=== PATIENT | female | born 1930 | race African-American/Black ===

== ENCOUNTER 2016-10-06 16:46 | Inpatient (IN) | payer MEDICAID, MEDICARE ==
[~2016-10-06] VITALS: Ht 167.6 cm; Wt 81.6 kg
--- NOTE | 2016-10-06 17:08 | NUR ---
Pt to e due to right first toe blister since last night. Pt is aa4, appears in no apparent distress,. Respiration even and unlabored,. Pt is afebrile. vss.
--- NOTE | 2016-10-06 17:10 | NUR ---
ASSUME PT CARE. RESTING IN BED. HERE FOR R BIG TOE BLISTER WHEN SHE CUT AN EXCESS SKIN OFF. 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 PT IS ALSO C/O MINIMAL CHEST PAIN X TODAY. 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 GOWNED AND PLACED ON MONITOR.
--- NOTE | 2016-10-06 17:11 | NUR ---
md maguire at bs
[2016-10-06] MEDS ORDERED: ASPIRIN 81 MG TAB.CHEW ONE (17:16)
--- NOTE | 2016-10-06 17:22 | NUR ---
IV LINE STARTED BLOOD DRAWN AND SENT TO LAB.
[2016-10-06 17:27] LABS: BASOPHILS % (AUTO) 0.3 % (0.0-2.0); EOSINOPHILS # (AUTO) 0.1 /CMM (0.0-0.7); EOSINOPHILS % (AUTO) 2.5 % (0.0-6.0); HEMATOCRIT 38 % (33-45); HEMOGLOBIN 12.5 g/dL (11.5-14.8); LYMPHOCYTES # (AUTO) 0.9 /CMM (0.8-4.8); LYMPHOCYTES % (AUTO) 16.2 % (20.0-44.0); MEAN CORPUSCULAR HEMOGLOBIN 30 PG (26.0-33.0); MEAN CORPUSCULAR HGB CONC 33 g/dl (31.0-36.0); MEAN CORPUSCULAR VOLUME 90 fL (82-100); MONOCYTES # (AUTO) 0.5 /CMM (0.1-1.30); NEUTROPHILS # (AUTO) 3.9 /CMM (1.8-8.9); PLATELET COUNT (AUTO) 225 /CMM (150-450); RDW COEFFICIENT OF VARIATION 11.7 (11.5-15.0); RED BLOOD CELL COUNT(AUTO) 4.16 MIL/uL (4.0-5.2); WHITE BLOOD COUNT (AUTO) 5.4 K/uL (4.3-11.0)
[2016-10-06] MEDS ORDERED: ASPIRIN 81 MG TAB.CHEW PO ONE (17:30)
[2016-10-06 17:42] LABS: INR 0.95 (0.87-1.13); PROTHROMBIN TIME 9.9 SECS (9.5-12.7)
[2016-10-06 17:44] LABS: ALANINE AMINOTRANSFERASE 20 U/L (12-78); ALBUMIN 2.8 g/dL (3.4-5.0); ALKALINE PHOSPHATASE 113 U/L (46-116); ASPARTATE AMINOTRANSFERASE 26 U/L (15-37); BILIRUBIN,DIRECT 0.2 mg/dL (0.0-0.2); BILIRUBIN,TOTAL 0.7 mg/dL (0.2-1.0); CALCIUM, SERUM 8.6 mg/dL (8.5-10.1); CARBON DIOXIDE 24 mmol/L (21-32); CHLORIDE 101 mmol/L (98-107); CREATININE 2.2 mg/dL (0.6-1.3); POTASSIUM 4.4 mmol/L (3.5-5.1); SODIUM SERUM 132 mmol/L (136-145); TOTAL PROTEIN, SERUM 7.5 g/dL (6.4-8.2); UREA NITROGEN, BLOOD 26 mg/dL (7-18)
[2016-10-06 17:46] LABS: TROPONIN I < 0.017 ng/mL (0.00-0.056)
[2016-10-06 17:47] LABS: GLUCOSE 450 mg/dL (74-106)
[2016-10-06] MEDS ORDERED: IV SET PRIMARY 1 EA INFUS.SET MC ONE (18:13)
[2016-10-06] MEDS ORDERED: IV NS 0.9% 1,000 ML ONE ×2 (18:13→22:32)
[2016-10-06] MEDS ORDERED: INSULIN REGULAR, HUMAN 100 UNIT/ML 10 ML VIAL ONE (18:13)
--- NOTE | 2016-10-06 18:24 | NUR ---
PAGED DR JIN FOR CALL BACK
[2016-10-06] MEDS ORDERED: INSULIN REGULAR, HUMAN 100 UNIT/ML 10 ML VIAL IV ONE (18:30)
[2016-10-06] MEDS ORDERED: IV NS 0.9% 1,000 ML BAG IV ONE (18:30)
--- NOTE | 2016-10-06 19:11 | NUR ---
REPORT REC'D FROM SHWETA GILL FOR JOHN.
--- NOTE | 2016-10-06 19:23 | NUR ---
REPORT GIVEN TO THAD FOR JOHN.
--- NOTE | 2016-10-06 20:00 | NUR ---
PT HAS TO GO TO THE BATHROOM. PT IS BEING ASSISTED BY MAN BRISENO. PT HAS GRIPPER SOCKS ON AND IS USING HER WALKER.
--- NOTE | 2016-10-06 20:11 | NUR ---
TELE 315-0
--- NOTE | 2016-10-06 20:19 | NUR ---
DR. DIAZ IS SPEAKING TO DR. NOE,
[2016-10-06] MEDS ORDERED: IV NS 0.9% 1,000 ML IV PRN (20:30)
[2016-10-06] MEDS ORDERED: *INSULIN REGULAR(HUMULIN R)HUM 100 UNIT/ML VIAL SQ PRN (20:30)
[2016-10-06] MEDS ORDERED: ACETAMINOPHEN 325 MG TABLET PO PRN (20:30)
[2016-10-06] MEDS ORDERED: DEXTROSE 50%-WATER 50 ML DISP.SYRIN IV PRN (20:30)
[2016-10-06] MEDS ORDERED: ONDANSETRON HCL/PF 4 MG/2 ML VIAL IV PRN (20:30)
--- NOTE | 2016-10-06 20:40 | NUR ---
CONTAINER FINISHING INSPECTOR NOTE RECEIVED PATIENT FROM ER VIA ZACK, PATIENT IS ALERT AND ORIENTEDX3, ABLE TO WALK WITH A WALKER, NO PAIN REPORTED, SOB AT TIMES. IV ON RIGHT AC IS PATENT AND INTACT. RIGHT GREAT TOE DM ULCER PRESENT, PICTURE TAKEN AND PUT THEM IN A CHART. WILL CONNECT TELE MONITOR. SRX2, BED IN LOW POSITION, CALL LIGHT WITHIN REACH, WILL CONTINUE TO MONITOR PATIENT.
[2016-10-06] MEDS ORDERED: hydrALAZINE HCL 25 MG TABLET PO PRN (21:00)
[2016-10-06] MEDS: HEPARIN SODIUM, PORCINE 5000 UNITS/1 ML VIAL SQ SCH (21:00)
[2016-10-06] MEDS: AMLODIPINE BESYLATE 5 MG TABLET PO SCH (21:00)
[2016-10-06] MEDS ORDERED: MORPHINE SULFATE INJ 2 MG/ML DISP.SYRIN IV PRN (21:00)
--- NOTE | 2016-10-06 21:00 | NUR ---
DELINQUENCY COUNSELOR NOTE PATIENT'S BP UPON ADMISSION WAS 210/94 PULSE 82, ASYMPTOMATIC. REPORTED TO DR. INMAN, AND ORDERED HYDRALAZINE 10MG IVP ONCE. ORDERS PUT IN AND WILL CARRY OUT. ALSO PATIENT DOES NOT HAVE HER HOME MEDS LIST, UNABLE TO DO HOME MEDS RECON.
[2016-10-06 21:15] VITALS: BP 210/93
[2016-10-06] MEDS: BLOOD SUGAR DIAGNOSTIC 1 EACH STRIP VI SCH (21:21)
[2016-10-06] MEDS ORDERED: LORAZEPAM 0.5 MG TABLET PO PRN (21:30)
[2016-10-06] MEDS ORDERED: ZOLPIDEM TARTRATE 5 MG TABLET PO PRN (21:30)
[2016-10-06] MEDS ORDERED: hydrALAZINE HCL IV 20 MG VIAL IV ONE (21:30)
--- NOTE | 2016-10-06 21:30 | NUR ---
WOOD PLANER NOTE PATIENT REFUSED TO GET 2 UNITS OF CLEAR INSULIN. BS 142. PATIENT STATED THAT 'NO NEEDLES ON ME! NO!' HEPARIN SQ WAS NOT ABLE TO ADMINISTER WELL BECAUSE PATIENT REFUSED TO TAKE IT. EDUCATION PROVIDED TO PATIENT ABOUT RISKS OF NOT TAKING THOSE MEDICATIONS, BUT STILL PATIENT INSISTED THAT NO NEEDLES.
[2016-10-06] MEDS ORDERED: AMLODIPINE BESYLATE 5 MG TABLET ONE (21:43)
[2016-10-06] MEDS ORDERED: hydrALAZINE HCL IV 20 MG VIAL ONE (21:44)
[2016-10-06] MEDS ORDERED: ATORVASTATIN 10 MG TABLET ONE (21:44)
--- NOTE | 2016-10-06 21:45 | NUR ---
HOSPITAL CARRIER NOTE AMLODIPINE 5MG PO DID NOT ADMINISTER FOR 2100. HYDRALAZINE 10MG IVP ONCE GIVEN INSTEAD. PATIENT'S BP WAS 210/94.
[2016-10-06] MEDS ORDERED: ATORVASTATIN 10 MG TABLET PO SCH (22:00)
--- NOTE | 2016-10-06 22:00 | NUR ---
DIRECTOR OF CONTENT AND PROGRAMMING NOTE DR. ZELAYA IS HERE FOR I&D ON RIGHT GREAT TOE. GOT A CONSENT FROM PT, PREPARED SUPPLIES. DEBRIDEMENT PERFORMED, COVERED WITH KERLIX AT THIS TIME. PATIENT TOLERATED THE PROCEDURE WELL.
[2016-10-06] MEDS ORDERED: LIDOCAINE 5% OINT 35.44 GM TUBE TP PRN (22:30)
[2016-10-06] MEDS ORDERED: IV SET PRIMARY PUMP SET 1 EA INFUS.SET MC ONE (22:32)
[2016-10-06] MEDS ORDERED: SECONDARY IV SET 1 EA INFUS.SET MC ONE (22:33)
[2016-10-06] MEDS ORDERED: IV NS 0.9% 1,000 ML BAG IV PRN (23:00)
--- NOTE | 2016-10-06 23:00 | NUR ---
ALIGNING CHECKER NOTE RECHECK BP WAS 150/89 PULSE 86.
[2016-10-06] MEDS ORDERED: PIPERACILLIN /TAZOBACTAM 2.25 G VIAL IV ONE (23:05)
[2016-10-06] MEDS ORDERED: IV D5W 50 ML IV ONE (23:05)
[2016-10-06] MEDS: PIPERACILLIN /TAZOBACTAM 2.25 G in IV D5W 50 ML IV SCH (23:22)
[2016-10-07] VITALS: BP 150/89
[2016-10-07 04:00] VITALS: BP 159/73
[2016-10-07] MEDS ORDERED: IV NS 0.9% 1,000 ML BAG IV PRN ×2 (05:00)
[2016-10-07] MEDS ORDERED: IV D5W 50 ML IV ONE (05:11)
[2016-10-07] MEDS ORDERED: PIPERACILLIN /TAZOBACTAM 2.25 G VIAL IV ONE (05:11)
[2016-10-07] MEDS: PIPERACILLIN /TAZOBACTAM 2.25 G in IV D5W 50 ML IV SCH ×3 (05:43→21:14)
[2016-10-07] MEDS: BLOOD SUGAR DIAGNOSTIC 1 EACH STRIP VI SCH ×4 (05:47→21:34)
--- NOTE | 2016-10-07 06:10 | NUR ---
MASTER CONTROL OPERATOR NOTE PATIENT'S BS IS 207, REFUSED TO GET CLEAR INSULIN STATING NO ONE CAN PUT A NEEDLE ON ME, I HAVE BEEN TAKING PILL MEDICATION, NO NEEDLES! EDUCATION PROVIDED THE RISKS OF NOT TAKING INSULIN AT THIS TIME, PATIENT STILL INSISTED THAT MY SUGAR WILL GO DOWN, NO INSULIN ON ME. NOTIFIED CHG RN.
--- NOTE | 2016-10-07 06:40 | NUR ---
SYSTEM CONSULTANT NOTE PATIENT IS RESTING IN BED, NO S/S OF RESPIRATORY DISTRESS AND NO FACIAL GRIMACE NOTED. IV ON RIGHT AC IS PATENT AND INTACT, FLUID IS RUNNING. WILL ENDORSE TO DAY SHIFT FOR JOHN.
[2016-10-07 08:00] VITALS: BP 165/71
[2016-10-07] MEDS ORDERED: IV NS 0.9% 1,000 ML IV PRN (08:00)
--- NOTE | 2016-10-07 08:00 | NUR ---
RN OPENING NOTE RECEIVED PATIENT IN BED RESTING, ALERT AND ORIENTED X3. PATIENT ABLE TO WALK WITH A WALKER. DENIES ANY PAIN. NO ACUTE DISTRESS NOTED. IV SITE PATENT AND INTACT. TELEMETRY SR 84. BED IN LOW POSITION, SIDE RAILS UP. CALL LIGHT WITHIN REACH, WILL CONTINUE TO MONITOR PATIENT.
[2016-10-07] MEDS ORDERED: LINA5TAB PO (08:14)
[2016-10-07] MEDS ORDERED: KETO5DRO83 EACHEYE (08:14)
[2016-10-07] MEDS ORDERED: HYDR-3326 PO (08:14)
[2016-10-07] MEDS ORDERED: CLOP75TA2 PO (08:14)
[2016-10-07] MEDS ORDERED: CARV3.122 PO (08:14)
[2016-10-07] MEDS ORDERED: GLIP5TAB13 PO (08:14)
[2016-10-07] MEDS ORDERED: ATOR40TA PO ×2 (08:14→12:00)
[2016-10-07] MEDS ORDERED: IPRA3AMP IH (08:14)
[2016-10-07] MEDS ORDERED: FERR-58 PO (08:14)
[2016-10-07] MEDS ORDERED: TIMO5DRO4 EACHEYE (08:14)
[2016-10-07] MEDS ORDERED: CALC1CAP21 PO (08:14)
[2016-10-07] MEDS ORDERED: FURO40TA5 PO (08:14)
[2016-10-07] MEDS ORDERED: DOCU-25 PO (08:14)
[2016-10-07] MEDS: PANTOPRAZOLE 40 MG TABLET.DR PO SCH (08:31)
[2016-10-07] MEDS: NITROGLYCERIN 30 GM TUBE TP SCH ×4 (09:00→21:00)
[2016-10-07] MEDS: HEPARIN SODIUM, PORCINE 5000 UNITS/1 ML VIAL SQ SCH ×2 (09:00→21:00)
[2016-10-07] MEDS: ASPIRIN EC 81 MG TABLET.DR PO SCH (09:07)
[2016-10-07] MEDS: ASCORBIC ACID 500 MG TABLET PO SCH (09:07)
[2016-10-07] MEDS: METOPROLOL TARTRATE 25 MG TABLET PO SCH ×2 (09:09→17:00)
[2016-10-07] MEDS: hydrALAZINE HCL 50 MG TABLET PO SCH ×3 (09:09→17:00)
[2016-10-07] MEDS: ZINC SULFATE 220 MG CAPSULE PO SCH (09:10)
[2016-10-07] MEDS: AMLODIPINE BESYLATE 5 MG TABLET PO SCH (09:10)
[2016-10-07] MEDS: FLUCONAZOLE (100 MG) 100 MG TABLET PO SCH (09:10)
[2016-10-07 09:15] LABS: MAGNESIUM 1.6 mg/dL (1.8-2.4); PHOSPHORUS 3.3 mg/dL (2.5-4.9)
[2016-10-07] MEDS: DAKINS QUARTER STRENGTH (0.125%) 480 ML BOTTLE TOP SCH (09:17)
[2016-10-07] MEDS: GENTAMICIN 0.1% OINT 15 GM TUBE TP SCH ×2 (09:22→17:00)
[2016-10-07 09:26] LABS: THYROID STIMULATING HORMONE 2.936 uIU/mL (0.358-3.74)
--- NOTE | 2016-10-07 11:34 | NUR ---
SPOT CLEANER WOUND CARE RECEIVED WOUND CONSULT, WOUND CARE WILL DEFER TO PODIATRY SURGICAL TEAM AT THIS TIME. TREATMENT ORDERS CLARIFIED WITH DR CERRATO AND DISCUSSED WITH NURSING STAFF. PATIENT AMBULATORY PER NURSING STAFF, FREDA AT 20. WOUND CARE WILL SEE PRN.
[2016-10-07 12:00] VITALS: BP 119/56
--- NOTE | 2016-10-07 12:50 | NUR ---
BLOOD SUGAR 284mg/dl. PATIENT REFUSED INSULIN. WILL CONTINUE TO MONITOR.
[2016-10-07] MEDS ORDERED: INSULIN GLARGINE, 100 UNIT/ML CARTRIDGE SQ SCH (13:00)
[2016-10-07] MEDS: INSULIN DETEMIR 100 UNIT/ML CARTRIDGE SQ SCH (13:00)
--- NOTE | 2016-10-07 13:55 | NUR ---
PATIENT REFUSED NITROGLYCERIN OINTMENT. WILL CONTINUE TO MONITOR PATIENT.
[2016-10-07 16:00] VITALS: BP 158/64
--- NOTE | 2016-10-07 16:52 | NUR ---
Attempted 3 times to do studies ordered by Doctors, but patient uncooperative.
[2016-10-07] MEDS: DOCUSATE SODIUM 100 MG CAPSULE PO SCH (17:00)
[2016-10-07] MEDS: TIMOLOL 0.5% SOLN OPHTH 5 ML BOTTLE EACHEYE SCH (17:00)
[2016-10-07] MEDS: INSULIN ASPART NOVOLOG 100 UNIT/ML CARTRIDGE SQ SCH (17:30)
--- NOTE | 2016-10-07 17:50 | NUR ---
BLOOD SUGAR 299mg/dl. PATIENT REFUSED INSULIN. WILL CONTINUE TO MONITOR.
--- NOTE | 2016-10-07 18:03 | NUR ---
PT REFUSED ALL ORAL PILLS AND INSULIN .PT IS CUSSING NASTY REMARKS ABOUT THE FOOD SERVED.PT INSIST TO REFUSED MEDS INSPITE OF EXPLAINING THE MEDS RISKS AND BENEFITS.
--- NOTE | 2016-10-07 18:05 | NUR ---
DISCARDED ALL ORAL PILLS OPENED FOR PT TO TAKE IN THE DISPENSER WITNESSED BY CO RNÓSCAR.
[2016-10-07] MEDS ORDERED: SECONDARY IV SET 1 EA INFUS.SET MC ONE (18:27)
--- NOTE | 2016-10-07 19:00 | NUR ---
RN CLOSING NOTES PATIENT IS RESTING IN BED. NO S/S OF DISTRESS. VITAL SIGNS STABLE. IV SITE PATENT AND INTACT, NS @ 70 ML/HR. BED IN LOWEST POSITION, SIDE RAILS UP, CALL LIGHT WITHIN REACH. WILL ENDORSE TO DAY SHIFT FOR JOHN
--- NOTE | 2016-10-07 19:57 | NUR ---
CALLED AND NOTIFIED DR INMAN OF PT REFUSING INSULIN ADMINISTRATION AND BP MEDS WITH NO NEW ORDER SAYING HE'LL TALK TO THE PT TOMORROW IN AM.EXPLAINED TO THE PT THE RISKS AND BENEFITS OF INSULIN BUT PT INSISTS TO REFUSE SAYING THAT SHE WILL NOT RECEIVE ANY INJECTIONS. Addendum: 10/07/16 at 2008 by DEJAN VARGAS RN PT REFUSED BP MEDS IN THE AFTERNOON ONLY.
[2016-10-07 20:00] VITALS: BP 143/65
--- NOTE | 2016-10-07 21:00 | NUR ---
LIFE SCIENCE TEACHER NOTES PT REFUSED HER HEPARIN. EXPLAINED TO HER RISKS AND BENEFITS OF HEPARIN MEDICATION IN HER POC BUT PT STILL REFUSED. PT STATES "LEAVE ME ALONE. EVERYONE'S BUGGING ME HERE. TOMORROW I'M GOING TO ASK MY DOCTOR TO DISCHARGE ME."
[2016-10-07] MEDS: ATORVASTATIN 10 MG TABLET PO SCH (21:34)
--- NOTE | 2016-10-07 22:00 | NUR ---
CLINICAL DATA SPECIALIST NOTES PT REFUSED TO HAVE HER BS CHECKED AND REFUSED INSULIN COVERAGE. EXPLAINED TO HER RISKS AND BENEFITS OF INSULIN COVERAGE AND BLOOD SUGAR CHECK IN HER POC BUT PT STILL REFUSED. WILL CONTINUE TO MONITOR.
--- NOTE | 2016-10-08 | NUR ---
FEED MILLER NOTES PT REFUSED TO HAVE VS TAKEN. EXPLAINED TO HER RISKS & BENEFITS OF VS IN HER POC BUT PT STILL REUSED. WILL CONTINUE TO MONITOR.
--- NOTE | 2016-10-08 05:00 | NUR ---
ARCHERY INSTRUCTOR NOTES PT REFUSED HER IVF AND IV ATB. EXPLAINED TO HER RISKS AND BENEFITS OF HER MEDICATION IN HER POC BUT PT STILL REFUSED. PT STATES "I DON'T WANT TO STAY HERE. I WANT TO GO HOME."
[2016-10-08] MEDS: PIPERACILLIN /TAZOBACTAM 2.25 G in IV D5W 50 ML IV SCH ×3 (05:17→20:49)
--- NOTE | 2016-10-08 06:00 | NUR ---
DIGITAL MARKETING CONSULTANT NOTES PT REFUSED TO HAVE LABS DRAWN. EXPLAINED TO HER RISKS & BENEFITS OF LABS IN HER POC BUT PT STILL REFUSED. WILL CONTINUE TO MONITOR.
--- NOTE | 2016-10-08 06:39 | NUR ---
ADDICTIONS COUNSELOR NOTES AWAKE & RESPONSIVE. NOT IN ANY DISTRESS. NO SOB NOTED. DENIES ANY PAIN OR DISCOMFORT AT THIS TIME. ON TELE SR @ 70 WITH IV-HL PATENT & INTACT. MONITORED ACCORDINGLY. CALL LIGHT WITHIN REACH. BED IN LOWEST POSITION. SR UP X 2 FOR SAFETY. WILL ENDORSE TO NEXT SHIFT.
[2016-10-08] MEDS: BLOOD SUGAR DIAGNOSTIC 1 EACH STRIP VI SCH ×4 (06:58→21:21)
[2016-10-08] MEDS: INSULIN ASPART NOVOLOG 100 UNIT/ML CARTRIDGE SQ SCH ×2 (07:30→12:33)
[2016-10-08 08:00] VITALS: BP 153/71
--- NOTE | 2016-10-08 08:00 | NUR ---
WEB MERCHANT NOTES AWAKE, ALERT ORIENTED X3 . NOT IN ANY DISTRESS. NO SOB NOTED. DENIES ANY PAIN OR DISCOMFORT AT THIS TIME. ON TELE SR WITH PERIPHERAL IV-HL PATENT & INTACT. CALL LIGHT WITHIN REACH. BED IN LOWEST POSITION. SR UP X 2 FOR SAFETY. WILL CONTINUE TO MONITOR.
[2016-10-08] MEDS: DOCUSATE SODIUM 100 MG CAPSULE PO SCH ×2 (08:32→16:31)
[2016-10-08] MEDS: ASPIRIN EC 81 MG TABLET.DR PO SCH (08:32)
[2016-10-08] MEDS: ZINC SULFATE 220 MG CAPSULE PO SCH (08:32)
[2016-10-08] MEDS: ASCORBIC ACID 500 MG TABLET PO SCH (08:32)
[2016-10-08] MEDS: hydrALAZINE HCL 50 MG TABLET PO SCH ×3 (08:32→16:32)
[2016-10-08] MEDS: CLOPIDOGREL BISULFATE 75 MG TABLET PO SCH (08:32)
[2016-10-08] MEDS: AMLODIPINE BESYLATE 5 MG TABLET PO SCH (08:33)
[2016-10-08] MEDS: PANTOPRAZOLE 40 MG TABLET.DR PO SCH (08:33)
[2016-10-08] MEDS: LINAGLIPTIN 5 MG TABLET PO SCH (08:33)
[2016-10-08] MEDS: FUROSEMIDE 40 MG TABLET PO SCH (08:33)
[2016-10-08] MEDS: FLUCONAZOLE (100 MG) 100 MG TABLET PO SCH (08:33)
[2016-10-08] MEDS: TIMOLOL 0.5% SOLN OPHTH 5 ML BOTTLE EACHEYE SCH (08:38)
[2016-10-08] MEDS: DAKINS QUARTER STRENGTH (0.125%) 480 ML BOTTLE TOP SCH (08:38)
[2016-10-08] MEDS: METOPROLOL TARTRATE 25 MG TABLET PO SCH ×2 (08:38→16:32)
[2016-10-08] MEDS: GENTAMICIN 0.1% OINT 15 GM TUBE TP SCH (08:38)
[2016-10-08] MEDS: HEPARIN SODIUM, PORCINE 5000 UNITS/1 ML VIAL SQ SCH ×2 (08:45→21:07)
[2016-10-08] MEDS: INSULIN DETEMIR 100 UNIT/ML CARTRIDGE SQ SCH (08:45)
[2016-10-08] MEDS: NITROGLYCERIN 30 GM TUBE TP SCH ×2 (08:46→20:58)
--- NOTE | 2016-10-08 09:00 | NUR ---
MS RN NOTES PATIENT NONE COMPLIANT WITH CARE AND MEDICATIONS. REFUSES ALL INJECTION MEDICATION. MD AWARE. PATIENT STATES SHE WANTS TO BE DISCHARGED TODAY. WAITING FOR DR. INMAN. WOUND CARE PERFORMED ORDERED. WILL CONTINUE TO MONITOR.
[2016-10-08] MEDS: TIMOLOL 0.25% SOL OPHTH 10 ML BOTTLE LEFTEYE SCH ×3 (14:00→20:56)
--- NOTE | 2016-10-08 14:00 | NUR ---
MS RN NOTES PATIENT SEEN AND EVALUATED BY DR. INMAN ORDERS NOTED AND CARRIED OUT.
[2016-10-08 14:27] LABS: ALANINE AMINOTRANSFERASE 21 U/L (12-78); ALBUMIN 2.5 g/dL (3.4-5.0); ALKALINE PHOSPHATASE 75 U/L (46-116); ASPARTATE AMINOTRANSFERASE 24 U/L (15-37); CALCIUM, SERUM 8.7 mg/dL (8.5-10.1); CARBON DIOXIDE 26 mmol/L (21-32); CHLORIDE 105 mmol/L (98-107); CREATININE 1.8 mg/dL (0.6-1.3); GLUCOSE 158 mg/dL (74-106); MAGNESIUM 1.6 mg/dL (1.8-2.4); PHOSPHORUS 3.5 mg/dL (2.5-4.9); SODIUM SERUM 138 mmol/L (136-145); UREA NITROGEN, BLOOD 23 mg/dL (7-18)
[2016-10-08] MEDS ORDERED: SECONDARY IV SET 1 EA INFUS.SET MC ONE (14:32)
[2016-10-08] MEDS: Magnesium 1GM/D5W 100ML PREMIX 100 ML IV SCH ×2 (14:42→16:31)
[2016-10-08 14:43] LABS: BASOPHILS % (AUTO) 0.4 % (0.0-2.0); EOSINOPHILS # (AUTO) 0.1 /CMM (0.0-0.7); EOSINOPHILS % (AUTO) 3.4 % (0.0-6.0); HEMATOCRIT 35 % (33-45); HEMOGLOBIN 11.7 g/dL (11.5-14.8); LYMPHOCYTES # (AUTO) 0.9 /CMM (0.8-4.8); LYMPHOCYTES % (AUTO) 20.8 % (20.0-44.0); MEAN CORPUSCULAR HEMOGLOBIN 30 PG (26.0-33.0); MEAN CORPUSCULAR HGB CONC 33 g/dl (31.0-36.0); MEAN CORPUSCULAR VOLUME 91 fL (82-100); MONOCYTES # (AUTO) 0.4 /CMM (0.1-1.30); MONOCYTES % (AUTO) 9.6 % (2.0-12.0); NEUTROPHILS # (AUTO) 2.8 /CMM (1.8-8.9); NEUTROPHILS % (AUTO) 65.8 % (43.0-81.0); PLATELET COUNT (AUTO) 225 /CMM (150-450); RED BLOOD CELL COUNT(AUTO) 3.87 MIL/uL (4.0-5.2); WHITE BLOOD COUNT (AUTO) 4.2 K/uL (4.3-11.0)
[2016-10-08] MEDS: CHOLECALCIFEROL 1,000 UNIT TABLET (VIT D3) PO SCH (14:47)
[2016-10-08 15:07] LABS: TROPONIN I 0.018 ng/mL (0.00-0.056)
[2016-10-08 16:00] VITALS: BP 141/68
[2016-10-08] MEDS: INSULIN LISPRO/ASPART 100 UNIT/ML CARTRIDGE SQ SCH (16:43)
--- NOTE | 2016-10-08 17:00 | NUR ---
MS RN NOTES CALL RECEIVED FROM LAB REPORTING POSITIVE MRSA OF ROSANGELA BRYSON MADE AWARE ORDERS OBTAINED AND CARRIED OUT.
[2016-10-08] MEDS ORDERED: INSULIN ASPART NOVOLOG 100 UNIT/ML CARTRIDGE SQ SCH (17:30)
--- NOTE | 2016-10-08 18:22 | NUR ---
MS RN NOTES. PATIENT IN BED RESTING, PATIENT NOTED WITH INCREASED COMPLIANCE WITH MEDICAL CARE. PATIENT STILL NOTED TO BE NON COMPLIANT BUT DOES NOT REFUSE MEDICATIONS WITH INCREASED EDUCATION. PROVIDED DIABETIC EDUCATION, NEEDS REINFORCEMENT. ALL DUE MEDICATIONS ADMINISTERED. ALL NEEDS MET. WILL ENDORSE CARE TO PM SHIFT.
[2016-10-08 20:00] VITALS: BP 152/53
--- NOTE | 2016-10-08 20:20 | NUR ---
MS/RN OPENING NOTES RECEIVED REPORT FROM AM RN . PATIENT ALERT, ORIENTED X4. NO S/S OF SOB OR DISTRESS. ABLE TO VERBALIZE NEEDS. INFORMED ABOUT MEDICATION FOR TONIGHT. REFUSE TO HAVE IV FLUIDS , INFORMED THE IMPORTANCE/BENEFIT OF IV FLUIDS, VERBALIZED UNDERSTANDING. CALL LIGHTS WITHIN REACH, FLUIDS/PITCHER AT BEDSIDE. WILL CONTINUE TO MONITOR.
[2016-10-08 20:22] VITALS: BP 152/53
--- NOTE | 2016-10-08 20:31 | NUR ---
MS/RN NOTES PATIENT ABLE TO GO TO BATHROOM SAFELY. OFFERED ASSISTANCE BY RN BUT REFUSE TO BE ASSISTED STATED" I CAN GO MYSELF" INFORMED ABOYT MEDICATION SAID WILL TAKE MEDS ORDERED. WILL PREPARE MED[facility] AT THIS TIME.
[2016-10-08] MEDS: MUPIROCIN OINT 2% 22 GM TUBE SCH (20:56)
[2016-10-08] MEDS: ATORVASTATIN 10 MG TABLET PO SCH (21:00)
--- NOTE | 2016-10-08 21:13 | NUR ---
MS/RN NOTES PATIENT WAS INFORMED REGARDING MEDICATION AND AGREED TO TEKE THEM BUT CHANGE HER MIND WITH HEPARIN INJ SHE DOES NOT WANT TO BE INJECTED IN ABDOMEN. ALSO REFUSEDBACTROBAN OINTMENT IN NOSE ASWELL.. DISCUSSED THE PROS AND CONS AND STATED UNDERSTANDING.
[2016-10-09] MEDS: PIPERACILLIN /TAZOBACTAM 2.25 G in IV D5W 50 ML IV SCH ×3 (05:17→14:01)
--- NOTE | 2016-10-09 06:11 | NUR ---
ms/rn closing notes PATIENT AWAKE, ALERT X3. ABLE TO VERBALIZE NEEDS. SUPERVISE TO THE BATHROOM. PROVIDE/OFFERED FLUIDS. NO S/S OF SOB, OR DISTRESS. WILL ENDORSE TO AM RN REGARDING CONTINUITY OF CARE.
[2016-10-09] MEDS: BLOOD SUGAR DIAGNOSTIC 1 EACH STRIP VI SCH ×2 (06:31→12:39)
[2016-10-09 06:39] LABS: BASOPHILS % (AUTO) 0.7 % (0.0-2.0); EOSINOPHILS # (AUTO) 0.2 /CMM (0.0-0.7); EOSINOPHILS % (AUTO) 3.9 % (0.0-6.0); HEMATOCRIT 35 % (33-45); LYMPHOCYTES # (AUTO) 1.3 /CMM (0.8-4.8); LYMPHOCYTES % (AUTO) 27.5 % (20.0-44.0); MEAN CORPUSCULAR HEMOGLOBIN 31 PG (26.0-33.0); MEAN CORPUSCULAR HGB CONC 34 g/dl (31.0-36.0); MEAN CORPUSCULAR VOLUME 90 fL (82-100); MONOCYTES # (AUTO) 0.5 /CMM (0.1-1.30); NEUTROPHILS # (AUTO) 2.6 /CMM (1.8-8.9); NEUTROPHILS % (AUTO) 55.9 % (43.0-81.0); PLATELET COUNT (AUTO) 225 /CMM (150-450); RDW COEFFICIENT OF VARIATION 13.1 (11.5-15.0); RED BLOOD CELL COUNT(AUTO) 3.89 MIL/uL (4.0-5.2); WHITE BLOOD COUNT (AUTO) 4.6 K/uL (4.3-11.0)
[2016-10-09 06:53] LABS: ALANINE AMINOTRANSFERASE 23 U/L (12-78); ALBUMIN 2.4 g/dL (3.4-5.0); ALKALINE PHOSPHATASE 80 U/L (46-116); ASPARTATE AMINOTRANSFERASE 28 U/L (15-37); BILIRUBIN,TOTAL 1.4 mg/dL (0.2-1.0); CALCIUM, SERUM 8.9 mg/dL (8.5-10.1); CARBON DIOXIDE 23 mmol/L (21-32); CHLORIDE 104 mmol/L (98-107); CREATININE 1.9 mg/dL (0.6-1.3); GLUCOSE 200 mg/dL (74-106); MAGNESIUM 2.2 mg/dL (1.8-2.4); POTASSIUM 4.8 mmol/L (3.5-5.1); SODIUM SERUM 135 mmol/L (136-145); UREA NITROGEN, BLOOD 26 mg/dL (7-18)
[2016-10-09] MEDS: INSULIN REGULAR, HUMAN 100 UNIT/ML 3 ML VIAL SQ PRN ×2 (06:56→12:45)
--- NOTE | 2016-10-09 07:30 | NUR ---
RECEIVED PT. ALERT AND ORIENTED X4.EASILY AGITATED AND IRRITABLE EASILY.SENDING NURSE OUT OF ROOM FREQ. FOR THINGS.HEP LOCK IN PLACE.
[2016-10-09 08:00] VITALS: BP 150/56
[2016-10-09] MEDS: FLUCONAZOLE (100 MG) 100 MG TABLET PO SCH (09:00)
[2016-10-09] MEDS: FUROSEMIDE 40 MG TABLET PO SCH (09:00)
[2016-10-09] MEDS ORDERED: INSULIN DETEMIR 100 UNIT/ML CARTRIDGE SQ SCH (09:00)
[2016-10-09] MEDS: GENTAMICIN 0.1% OINT 15 GM TUBE TP SCH ×2 (09:00→09:17)
[2016-10-09] MEDS: HEPARIN SODIUM, PORCINE 5000 UNITS/1 ML VIAL SQ SCH (09:00)
[2016-10-09] MEDS: DOCUSATE SODIUM 100 MG CAPSULE PO SCH (09:00)
[2016-10-09] MEDS: MUPIROCIN OINT 2% 22 GM TUBE SCH (09:00)
[2016-10-09] MEDS: NITROGLYCERIN 30 GM TUBE TP SCH (09:00)
[2016-10-09] MEDS: AMLODIPINE BESYLATE 5 MG TABLET PO SCH (09:00)
[2016-10-09] MEDS: INSULIN LISPRO/ASPART 100 UNIT/ML CARTRIDGE SQ SCH ×2 (09:15→12:47)
[2016-10-09] MEDS: TIMOLOL 0.25% SOL OPHTH 10 ML BOTTLE LEFTEYE SCH ×2 (09:16→14:02)
[2016-10-09] MEDS: LINAGLIPTIN 5 MG TABLET PO SCH (09:16)
[2016-10-09] MEDS: ZINC SULFATE 220 MG CAPSULE PO SCH (09:17)
[2016-10-09] MEDS: METOPROLOL TARTRATE 25 MG TABLET PO SCH (09:18)
[2016-10-09] MEDS: CHOLECALCIFEROL 1,000 UNIT TABLET (VIT D3) PO SCH (09:19)
[2016-10-09] MEDS: ASPIRIN EC 81 MG TABLET.DR PO SCH (09:19)
[2016-10-09] MEDS: ASCORBIC ACID 500 MG TABLET PO SCH (09:19)
[2016-10-09] MEDS: hydrALAZINE HCL 50 MG TABLET PO SCH ×2 (09:19→14:01)
[2016-10-09] MEDS: CLOPIDOGREL BISULFATE 75 MG TABLET PO SCH (09:20)
[2016-10-09] MEDS: PANTOPRAZOLE 40 MG TABLET.DR PO SCH (09:21)
[2016-10-09] MEDS: DAKINS QUARTER STRENGTH (0.125%) 480 ML BOTTLE TOP SCH (09:40)
--- NOTE | 2016-10-09 10:00 | NUR ---
PT. REFUSED A LOT OF MEDS IN AM,DR. INMAN INFORMED.
[2016-10-09] MEDS ORDERED: MUPIROCIN OINT 2% 22 GM TUBE SCH (11:00)
--- NOTE | 2016-10-09 12:30 | NUR ---
DR. BONNY INMAN IN AND DC ORDER GIVEN.STATED HE TOLD PT. TO RETURN TO [facility] AFTER DC. WELL PT. TO FOLLOW UP WITH PRIVATE MD.RN REINFORCED INFO TO PT.
--- NOTE | 2016-10-09 13:16 | NUR ---
refused discharge photos,although consented to have wd. on foot dressed.
[2016-10-09 14:01] VITALS: BP 131/53
--- NOTE | 2016-10-09 15:20 | NUR ---
FAMILY HERE TO COMPOUNDER HELPER PT. RN REVIEWED HOME MED LIST,HEP LOCK FELL OUT IN AFTERNOON SO 1PM ZOSYN NOT GIVEN.REVIEWED ALL RXS WITH FAMILY.INFO ON PT. FAXED TO PT[facility].FAMILY MADE AWARE.ALL DC INSTRUCTIONS GIVEN TO SON.PT. REFUSING TO BE WHEELED OUT INSISTED ON WALKING WITH USE OF HER WHEELED WALKER AND THIN SLIPPER ON FT.FAMILY VERBALIZED BEING UPSET WITH PT,S NON-COMPLIANCE.
== END 2016-10-09 15:20 | disposition home health service (06) | DRG 364 ==
LOC: ER 16:47 → TELE 20:34 → MED 10-08 08:40
PROVIDERS: ADMIT Internal Medicine; ATTEND Internal Medicine
PROC: 0QBQ0ZZ Excision of Right Toe Phalanx, Open Approach (ICD-10-PCS; principal; 2016-10-06)
DX: E11.621 Type 2 diabetes mellitus with foot ulcer (principal); L97.519 Non-pressure chronic ulcer of other part of right foot with unspecified severity; N17.0 Acute kidney failure with tubular necrosis; I13.0 Hypertensive heart and chronic kidney disease with heart failure and stage 1 through stage 4 chronic kidney disease, or unspecified chronic kidney disease; I50.30 Unspecified diastolic (congestive) heart failure; E11.22 Type 2 diabetes mellitus with diabetic chronic kidney disease; E11.51 Type 2 diabetes mellitus with diabetic peripheral angiopathy without gangrene; E11.65 Type 2 diabetes mellitus with hyperglycemia; L03.115 Cellulitis of right lower limb; E11.628 Type 2 diabetes mellitus with other skin complications; E88.09 Other disorders of plasma-protein metabolism, not elsewhere classified; E44.1 Mild protein-calorie malnutrition; J44.9 Chronic obstructive pulmonary disease, unspecified; Z95.0 Presence of cardiac pacemaker; Z87.891 Personal history of nicotine dependence; N18.9 Chronic kidney disease, unspecified; I25.10 Atherosclerotic heart disease of native coronary artery without angina pectoris; R07.89 Other chest pain; I16.0 Hypertensive urgency; I69.354 Hemiplegia and hemiparesis following cerebral infarction affecting left non-dominant side; I69.898 Other sequelae of other cerebrovascular disease; Z22.322 Carrier or suspected carrier of Methicillin resistant Staphylococcus aureus; Z68.29 Body mass index [BMI] 29.0-29.9, adult; Z91.19 Patient's noncompliance with other medical treatment and regimen; Z95.5 Presence of coronary angioplasty implant and graft; Z89.421 Acquired absence of other right toe(s); H40.9 Unspecified glaucoma; E66.3 Overweight; H54.40 Blindness, one eye, unspecified eye
CPT/HCPCS: 36415; 71010-TC; 73630-TC; 76770-TC; 80048-TC; 80053-TC; 80061-TC; 80076-TC; 82306; 82962-TC; 83735-TC; 84100-TC; 84439-TC; 84443-TC; 84484-TC; 85025-TC; 85730-TC; 87070-TC; 87081-TC; 97001-TC; A4216; A4606; A6403; J0360; J1644; J1815; J2543; J3475; J7030; J7060; Z7610

== ENCOUNTER 2016-10-20 10:00 | Outpatient (CLI) | payer MEDICARE, MEDICAID ==
[~2016-10-20 10:00] MED LIST: ATOR40TA PO; CALC1CAP21 PO; CARV3.122 PO; CLOP75TA2 PO; DOCU-25 PO; FERR-58 PO; FURO40TA5 PO; GLIP5TAB13 PO; HYDR-3326 PO; KETO5DRO83 EACHEYE; LINA5TAB PO; TIMO5DRO4 EACHEYE
== END 2016-10-20 23:59 | disposition home or self-care (01) ==
LOC: WOU 10:00
PROVIDERS: ATTEND Podiatrist Foot & Ankle Surgery
DX: Z09 Encounter for follow-up examination after completed treatment for conditions other than malignant neoplasm (principal); L84 Corns and callosities; M20.40 Other hammer toe(s) (acquired), unspecified foot; B35.1 Tinea unguium; L85.3 Xerosis cutis; E11.9 Type 2 diabetes mellitus without complications; Z79.84 Long term (current) use of oral hypoglycemic drugs; I25.2 Old myocardial infarction; J44.9 Chronic obstructive pulmonary disease, unspecified; Z79.4 Long term (current) use of insulin; Z79.51 Long term (current) use of inhaled steroids; Z79.899 Other long term (current) drug therapy; I25.10 Atherosclerotic heart disease of native coronary artery without angina pectoris; Z95.1 Presence of aortocoronary bypass graft
CPT/HCPCS: A6402; G0463; Z7610